=== PATIENT | female | born 1975 | race Caucasian/White ===

== ENCOUNTER 2021-12-07 13:21 | Emergency (ER) | payer OTHER ==
[2021-12-07] MEDS ORDERED: CYCLOBENZAPRINE10 MG PO (14:10)
[2021-12-07] MEDS ORDERED: MOTRIN600 MG PO (14:10)
== END 2021-12-07 14:24 | disposition home or self-care (01) ==
LOC: FER 13:21
DX: S39.012A Strain of muscle, fascia and tendon of lower back, initial encounter (principal); X58.XXXA Exposure to other specified factors, initial encounter
CPT/HCPCS: 99283; J1885

== ENCOUNTER 2022-04-25 22:42 | Emergency (ER) | payer OTHER ==
[~2022-04-25 22:42] MED LIST: CYCLOBENZAPRINE10 MG PO; MOTRIN600 MG PO
[2022-04-26] MEDS ORDERED: ZESTRIL5 M1 PO (00:17)
== END 2022-04-26 00:30 | disposition home or self-care (01) ==
LOC: FER 22:42
DX: I10 Essential (primary) hypertension (principal); Z28.310 Unvaccinated for COVID-19
CPT/HCPCS: J1885; Q0169